=== PATIENT | female | born 2005 | race Caucasian/White ===

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

== ENCOUNTER 2024-01-04 10:40 | Outpatient (CLI) | payer OTHER, SELFPAY ==
[2024-01-10 16:04] LABS: Factor Viii, Activity 91 % normal (50-180); Partial Thromboplastin Time, A 31 sec (23-32)
[2024-01-10 16:25] LABS: Von Willebrand Factor (Rcf) 137 % normal (42-200); Von Willebrand Factor Ag 144 % (50-217)
== END 2024-01-04 10:41 | disposition home or self-care (01) ==
LOC: LAB 10:42
PROVIDERS: PCP Nurse Practitioner Women's Health; Visit Provider Nurse Practitioner Women's Health
DX: D69.9 Hemorrhagic condition, unspecified (principal); N92.0 Excessive and frequent menstruation with regular cycle
CPT/HCPCS: 36415; 85240; 85245; 85246